=== PATIENT | female | born 1960 | race Caucasian/White ===

== ENCOUNTER 2016-02-12 08:24 | Observation (INO) | payer OTHER ==
--- NOTE | 2016-02-12 08:51 | ERNOTE ---
Abdominal HPI - Narrative Date of Service: 02/12/16 - General Chief Complaint: Abdominal Pain Time Seen by Provider: 02/12/16 08:44 Source: patient, family Exam Limitations: no limitations - Immun/Allergies/Home Medications Immunizatons: IMMUNIZATION HX Immunizations Up to Date Yes History of Influenza Vaccine Yes Allergies/Adverse Reactions: Allergies sulfamethoxazole [From Bactrim] Allergy (Verified 02/12/16 08:37) trimethoprim [From Bactrim] Allergy (Verified 02/12/16 08:37) hydromorphone HCl [From Dilaudid] Adverse Reaction (Intermediate, Verified 02/11 08:37) Nausea Home Medications: HOME MEDICATIONS Omeprazole [Prilosec] 20 mg PO DAILY 06/03/12 [Last Taken 07/11/13] Calcium Carb & Citrate/Vit D3 [Calcium + D3 ER Tablet] 1 each PO DAILY 01/01/13 [Last Taken 07/11/13] Multivit-Min/FA/Lycopene/Lut [Centrum Silver Tablet] 1 each PO DAILY 01/01/13 [ Last Taken 07/11/13] Acetaminophen [Tylenol] 650 mg PO QID PRN #0 tablet 07/16/13 [Last Taken Unknown ] - History of Present Illness Narrative: 4 days ago began to have RLQ abdominal pain and diarrhea. This has persisted and worsened. She also has a sore throat. 2 days ago, she was seen in the walkin clinic and given cleocin for strep throat and sinusitis. Nauseated. Only wanted Ibuprofen for pain in the ER. Turns out to have an elevated lipase and amylase. Review of Systems - Review of Systems Constitutional: Present: diaphoresis, weakness, malaise EYE: Present: no symptoms reported ENT: Present: sore throat Respiratory: Present: no symptoms reported Cardiology: Present: no symptoms reported Gastrointestinal/Abdominal: Present: See HPI Genitourinary: Present: no symptoms reported Musculoskeletal: Present: no symptoms reported Skin: Present: no symptoms reported Neurological: Present: no symptoms reported Endocrine: Present: no symptoms reported Hematologic/Lymphatic: Present: no symptoms reported Psych: Present: no symptoms reported All Other Systems: All systems neg except as marked - Patient's Past Medical History Patient History - Medical: No pertinent hx Patient History - Cardiac/Respiratory: No pertinent hx Patient History - Cancer: No Hx of Cancer Patient History - Surgical Procedures: , Tubal Ligation, Other - eye surgery, uterine ablation - Social History Living Situations: home Smoking Status: Never smoker Alcohol Use: none Drug Use: none Physical Exam - Physical Exam General Appearance: Present: wd/wn, alert, no apparent distress Eye Exam: Normal inspection: bilateral, PERRL: bilateral, EOMI: right - weak eye muscle Ears, Nose, Throat: Present: normal ENT inspection, hearing grossly normal Neck: Present: normal inspection, nontender Respiratory: Present: no respiratory distress, normal breath sounds Cardiovascular/Chest: Present: regular rate, rhythm, no murmur Gastrointestinal/Abdominal: Present: normal bowel sounds, nondistended, soft, no organomegaly, McBurney sign Back Exam: Present: normal inspection, normal range of motion, no CVA tenderness , no vertebral tenderness Extremity Exam: Present: normal inspection, no edema Neurological Exam: Present: alert, oriented, normal mood/affect Skin Exam: Present: normal color, warm/dry ED Progress - Results and Orders Patient's Lab Results:: I have reviewed the patient's lab results. - Vital Signs Patient's Vital Signs:: I have reviewed the patient's vital signs. Vital Signs: Vital Signs 02/12/16 08:34 Temperature 35.9 C L Pulse Rate 80 Respiratory 12 Rate Blood Pressure 144/75 O2 Sat by Pulse 98 Oximetry - CT/Ultrasound CT/Ultrasound Narrative: I reviewed the CT scan report which is non acute. - Progress/Reassessment Chief Complaint: Abdominal Pain Progress Note-Subjective: 02/12/16 14:27 I reviewed the abdominal CT scan report, which is non acute. 02/12/16 14:28 I spoke with the patient who agreed to be admitted for pancreatitis. I spoke with Dr. Jones who agreed to accept her as an observation medical surgical floor admission. Departure - Departure Clinical Impression: Pancreatitis Qualifiers: Chronicity: acute Pancreatitis type: unspecified pancreatitis type Acute pancreatitis complication: unspecified Qualified Code(s): K85.90 - Acute pancreatitis without necrosis or infection, unspecified Disposition: [facility] Condition: Good
[2016-02-12] MEDS ORDERED: IBUPROFEN 400 MG TABLET PO ONE (08:52)
[2016-02-12] MEDS ORDERED: NORMAL SALINE 1,000 ML IV PRN (08:53)
[2016-02-12 09:01] LABS: Hematocrit 43.3 % (37.0-47.0); Hemoglobin 14.3 gm/dL (12.5-16.0); Mean Cell Volume 85.9 fl (78-100); Mean Corpuscular Hemoglobin 28.4 pg (27-31); Mean Platelet Volume 9.5 fl (6.0-9.5); Neutrophil # 5.2 K/mm3 (1.3-6.0); Neutrophil % 51.2 % (42-75.0); Platelet Count 271 K/mm3 (150-450); Red Blood Count 5.04 M/mm3 (4.2-5.4); Red Cell Distribution Width 12.7 % (11.5-14.0); White Blood Count 10.1 K/mm3 (4.0-10.5)
[2016-02-12 09:14] LABS: Albumin * 3.8 gm/dl (3.4-5.0); Anion Gap 13.9 mmol/L (6.8-13.8); BUN/Creatinine Ratio 9.2 (9.0-21.6); Bilirubin, Total 0.3 mg/dL (0.0-1.1); Ca. Corrected For Albumin 8.8 mg/dL (8.4-10.2); Carbon Dioxide 26.9 mmol/L (24-32.6); Potassium 3.8 mmol/L (3.4-4.6); Total Protein 7.9 gm/dL (6.2-8.2)
[2016-02-12] MEDS ORDERED: DIATRIZOATE MEGLU/DIATRIZO SOD 30 ML BTL PO ONE (09:14)
[2016-02-12] MEDS ORDERED: IBUPROFEN 400 MG TABLET ONE (09:15)
[2016-02-12] MEDS ORDERED: DIATRIZOATE MEGLU/DIATRIZO SOD 30 ML BTL ONE (09:16)
[2016-02-12 10:30] LABS: Urine Appearance Clear; Urine Bacteria None Seen; Urine Bilirubin Negative (NEGATIVE); Urine Blood 10 /ul (NEGATIVE); Urine Color Yellow; Urine Ketone Negative (NEGATIVE); Urine Nitrite Negative (NEGATIVE); Urine Protein Negative (NEGATIVE); Urine RBC 0-5 /hpf (0-5); Urine Urobilinogen Normal (NORMAL); Urine WBC None Seen /hpf (0-5)
[2016-02-12] MEDS ORDERED: IBUPROFEN 800 MG TABLET PO PRN (14:32)
[2016-02-12] MEDS ORDERED: ONDANSETRON HCL/PF 2 MG/ML VIAL IV PRN (14:36)
[2016-02-12] MEDS: KETOROLAC TROMETHAMINE 30 MG/ML VIAL IV PRN ×2 (14:57→23:01)
[2016-02-12] MEDS: POTASSIUM CHLORIDE 20 MEQ in DEXTROSE 5%-NORMAL SALINE 990 ML IV SCH (15:14)
[2016-02-12] MEDS: PANTOPRAZOLE SODIUM 40 MG in NORMAL SALINE 100 ML IV SCH (15:14)
--- NOTE | 2016-02-12 20:02 | HP ---
Chief Complaint - Chief Complaint Date of Service: 02/12/16 Time of Service: 19:56 Chief Complaint: Abdominal Pain History of Present Illness: 4 days ago this 55 y/o woman began to have RLQ abdominal pain and diarrhea. This has persisted and worsened. She also has a sore throat. 2 days ago, she was seen in the [facility] walkin clinic and given cleocin for strep throat and sinusitis. She is nauseated. Only wanted Ibuprofen for pain today in the ER. Turns out to have an elevated lipase and amylase on further ER evaluation. - Patient's Past Medical History Patient History - Medical: No pertinent hx Patient History - Cardiac/Respiratory: No pertinent hx Patient History - Cancer: No Hx of Cancer Patient History - Surgical Procedures: , Tubal Ligation, Other - Family History Mother Family History - Medical: Family History - Cardiac/Respiratory: COPD, Myocardial Infarction Father Family History - Medical: Arthritis, Renal Failure Family History - Cardiac/Respiratory: Hypertension, Hyperlipidemia - Social History Living Situations: spouse Smoking Status: Never smoker Have you smoked in the past 12 months: No Do you dip or chew tobacco: No Patient requests Smoking Cessation Consult: No Initiate information on Smoking Cessation: No Alcohol Use: rarely Drug Use: none Review Of Systems (GEN) - Review of Systems Generalized/Overall Review: Present: Weakness, Malaise EENTM: Present: Throat Pain Respiratory: Present: No Symptoms Reported Cardiac: Present: No Symptoms Reported Abdominal: Present: Nausea, Abdominal Pain, Diarrhea Genitourinary: Present: No Symptoms Reported Musculoskeletal: Present: No Symptoms Reported Neurological: Present: No Symptoms Reported Skin: Present: No Symptoms Reported Endocrine: Present: No Symptoms Reported Misc: All systems neg except as marked Allergies/Adverse Reactions: Allergies Allergy/AdvReac Type Severity Reaction Status Date / Time sulfamethoxazole Allergy Verified 02/12/16 08:37 [From Bactrim] trimethoprim [From Bactrim] Allergy Verified 02/12/16 08:37 hydromorphone HCl AdvReac Intermediate Nausea Verified 02/12/16 08:37 [From Dilaudid] Home Medications: HOME MEDICATIONS Omeprazole [Prilosec] 20 mg PO DAILY 06/03/12 [Last Taken 07/11/13] Calcium Carb & Citrate/Vit D3 [Calcium + D3 ER Tablet] 1 each PO DAILY 01/01/13 [Last Taken 07/11/13] Multivit-Min/FA/Lycopene/Lut [Centrum Silver Tablet] 1 each PO DAILY 01/01/13 [ Last Taken 07/11/13] Acetaminophen [Tylenol] 650 mg PO QID PRN #0 tablet 07/16/13 [Last Taken Unknown ] Clindamycin HCl [Cleocin HCl] 300 mg PO TID 02/12/16 [Last Taken 02/11/16 22:00] Exam - Exam Vital Signs: Vital Signs - Last Taken Selected Entries 02/12/16 19:35 Temperature 36.9 C Temperature Oral Source Pulse Rate 72 Respiratory 20 Rate Blood Pressure 145/66 Blood Pressure Supine Position O2 Sat by Pulse 99 Oximetry Oxygen Delivery Room Air Method Constitutional: Present: Alert, Oriented x3, Cooperative, Well developed, Mild distress, Overweight ENT Exam: Present: normal ENT inspection, hearing grossly normal Eye Exam: bilateral eye: normal inspection, PERRL, right eye: EOMI - exotropia right eye Neck: Present: normal inspection Back Exam: Present: normal inspection Respiratory: Present: lungs clear, no respiratory distress Cardiovascular/Chest: Present: regular rate, rhythm, no murmur Abdomen: Present: Normal bowel sounds, soft, nondistended, tender - RLQ and epigastrium Extremity: Present: normal inspection, no pedal edema Skin Exam: Present: normal color, warm/dry, no cyanosis Neurologic: Present: alert, oriented x 3 Appearance: Present: appropriate appearance, appropriate insight, neat, no memory impairment Eye contact: Present: cooperative, good eye contact, normal speech Thoughts: Present: normal thought pattern Diagnostic Studies: Laboratory Results WBC 10.1 K/mm3 (4.0-10.5) 02/12/16 08:53 RBC 5.04 M/mm3 (4.2-5.4) 02/12/16 08:53 Hgb 14.3 gm/dL (12.5-16.0) 02/12/16 08:53 Hct 43.3 % (37.0-47.0) 02/12/16 08:53 MCV 85.9 fl (78-100) 02/12/16 08:53 MCH 28.4 pg (27-31) 02/12/16 08:53 MCHC 33.0 g/dl (32-36) 02/12/16 08:53 RDW 12.7 % (11.5-14.0) 02/12/16 08:53 Plt Count 271 K/mm3 (150-450) 02/12/16 08:53 MPV 9.5 fl (6.0-9.5) 02/12/16 08:53 Immature Gran % (Auto) 0.30 % (0.001-0.429) 02/12/16 08:53 Immature Gran # (Auto) 0.03 K/mm3 (0.000-0.0310) 02/12/16 08:53 Neutrophils % 51.2 % (42-75.0) 02/12/16 08:53 Lymphocytes % 36.5 % (20-51) 02/12/16 08:53 Monocytes % 4.4 % (0.0-9) 02/12/16 08:53 Eosinophils % 6.5 % (0.0-3.0) H 02/12/16 08:53 Basophils % 1.1 % (0.0-1.0) H 02/12/16 08:53 Nucleated RBC % 0.0 k/mm3 (0-1) 02/12/16 08:53 Neutrophils # 5.2 K/mm3 (1.3-6.0) 02/12/16 08:53 Lymphocytes # 3.7 k/mm3 (1.5-3.5) H 02/12/16 08:53 Monocytes # 0.4 k/mm3 (0.0-1.0) 02/12/16 08:53 Eosinophils # 0.7 k/mm3 (0.0-0.7) 02/12/16 08:53 Absolute Basophils 0.1 k/mm3 (0.0-0.1) 02/12/16 08:53 Sodium 139 mmol/L (132-142) 02/12/16 08:53 Plasma Sodium 139 mmol/L (130-142) 02/12/16 08:53 Potassium 3.8 mmol/L (3.4-4.6) 02/12/16 08:53 Chloride 102 mmol/L (97-106) 02/12/16 08:53 Carbon Dioxide 26.9 mmol/L (24-32.6) 02/12/16 08:53 Anion Gap 13.9 mmol/L (6.8-13.8) H 02/12/16 08:53 BUN 9 mg/dL (3-23) 02/12/16 08:53 Creatinine 0.98 mg/dL (0.4-1.4) 02/12/16 08:53 Est GFR (Non-Af Amer) 63 mL/min (60-130) 02/12/16 08:53 BUN/Creatinine Ratio 9.2 (9.0-21.6) 02/12/16 08:53 Random Glucose 111 mg/dL (70-110) H 02/12/16 08:53 Calcium 9.0 mg/dL (7.9-10.9) 02/12/16 08:53 Calcium Adj for Albumin 8.8 mg/dL (8.4-10.2) 02/12/16 08:53 Total Bilirubin 0.3 mg/dL (0.0-1.1) 02/12/16 08:53 AST 14 U/L (0-48) 02/12/16 08:53 ALT 28 U/L (19-67) 02/12/16 08:53 Alkaline Phosphatase 101 U/L (50-170) 02/12/16 08:53 Total Protein 7.9 gm/dL (6.2-8.2) 02/12/16 08:53 Albumin 3.8 gm/dl (3.4-5.0) 02/12/16 08:53 Amylase 155 U/L (25-115) H 02/12/16 08:53 Lipase 664 U/L (73-393) H 02/12/16 08:53 Serum HCG, Qual Negative (NEGATIVE) 02/12/16 08:53 Urine Color Yellow 02/12/16 10:10 Urine Appearance Clear 02/12/16 10:10 Urine pH 6.0 pH (5.0-7.0) 02/12/16 10:10 Ur Specific [place] 1.010 SP.GR. (1.005-1.010) 02/12/16 10:10 Urine Protein Negative mg/dL (NEGATIVE) 02/12/16 10:10 Urine Glucose (UA) Negative mg/dL (NEGATIVE) 02/12/16 10:10 Urine Ketones Negative mg/dL (NEGATIVE) 02/12/16 10:10 Urine Blood 10 /ul (NEGATIVE) H 02/12/16 10:10 Urine Nitrate Negative (NEGATIVE) 02/12/16 10:10 Urine Bilirubin Negative mg/dl (NEGATIVE) 02/12/16 10:10 Urine Urobilinogen Normal EU/dl (NORMAL) 02/12/16 10:10 Ur Leukocyte Esterase Negative /ul (NEGATIVE) 02/12/16 10:10 Urine RBC 0-5 /hpf (0-5) 02/12/16 10:10 Urine WBC None seen /hpf (0-5) 02/12/16 10:10 Ur Epithelial Cells 0-5 /hpf (0-5) 02/12/16 10:10 Urine Bacteria None seen (NONE) 02/12/16 10:10 Urine Culture Comments No culture indicated 02/12/16 10:10 Assessment/Plan - Narrative Narrative: Ultrasound g.b. IV antibiotics. NPO. IV fluids. Symptom control. Estimate stay of 2-3 days. - Assessment/Plan (1) Strep pharyngitis Problem: Acute (2) Pancreatitis Problem: Acute Qualifiers: Chronicity: acute Pancreatitis type: unspecified pancreatitis type Acute pancreatitis complication: unspecified Qualified Code(s): K85.90 - Acute pancreatitis without necrosis or infection, unspecified
[2016-02-12] MEDS ORDERED: ENOXAPARIN SODIUM 40 MG/0.4 ML SYRG SC SCH (21:00)
[2016-02-12] MEDS: CLINDAMYCIN HCL 150 MG CAPSULE PO SCH (21:36)
[2016-02-13] MEDS: POTASSIUM CHLORIDE 20 MEQ in DEXTROSE 5%-NORMAL SALINE 990 ML IV SCH ×2 (00:31→08:52)
[2016-02-13] MEDS: PANTOPRAZOLE SODIUM 40 MG in NORMAL SALINE 100 ML IV SCH ×2 (03:06→14:00)
[2016-02-13] MEDS: CLINDAMYCIN HCL 150 MG CAPSULE PO SCH ×2 (05:14→13:50)
[2016-02-13 05:16] LABS: Hematocrit 37.1 % (37.0-47.0); Mean Cell Volume 86.5 fl (78-100); Mean Corpuscular Hgb Conc 32.3 g/dl (32-36); Mean Platelet Volume 9.7 fl (6.0-9.5); Neutrophil # 4.6 K/mm3 (1.3-6.0); Neutrophil % 51.9 % (42-75.0); Platelet Count 226 K/mm3 (150-450); Red Blood Count 4.29 M/mm3 (4.2-5.4); Red Cell Distribution Width 12.8 % (11.5-14.0); White Blood Count 8.8 K/mm3 (4.0-10.5)
[2016-02-13 05:41] LABS: Albumin * 3.1 gm/dl (3.4-5.0); Anion Gap 11.7 mmol/L (6.8-13.8); BUN/Creatinine Ratio 6.2 (9.0-21.6); Bilirubin, Total 0.4 mg/dL (0.0-1.1); Ca. Corrected For Albumin 9.1 mg/dL (8.4-10.2); Calcium * 8.7 mg/dL (7.9-10.9); Carbon Dioxide 25.5 mmol/L (24-32.6); Potassium 4.2 mmol/L (3.4-4.6); Total Protein 6.3 gm/dL (6.2-8.2)
--- NOTE | 2016-02-13 10:27 | PN ---
Subjective - Date and Time Seen Date: 02/13/16 Time: 10:20 Subjective Narrative: patient seen today AOX3 no acute distress with at the bedside, pt state dher pain was 3/10 no need for pain medications. she is eager to be DC home and want to eat. She denies fever, chills, nausea, or vomiting. Objective - Review of Systems Generalized/Overall Review: Reports: No Symptoms Reported EENTM: Reports: No Symptoms Reported Respiratory: Reports: No Symptoms Reported Cardiac: Reports: No Symptoms Reported Abdominal: Reports: Abdominal Pain - mild pain localized right lower quadrant Genitourinary Symptoms: Reports: No Symptoms Reported Musculoskeletal Complaints: Reports: No Symptoms Reported Neurological: Reports: No Symptoms Reported Skin: Reports: No Symptoms Reported - Vitals Vitals: Last Vital Signs Temp 36.6 C 02/13/16 07:41 Pulse 73 02/13/16 07:41 Resp 16 02/13/16 07:41 BP 116/54 02/13/16 07:41 Pulse Ox 99 02/13/16 07:41 - Abnormal Lab Findings Abnormal Lab Findings: Abnormal Lab Results 02/13/16 02/13/16 Range/Units 04:50 04:50 Hgb 12.0 L (12.5-16.0) gm/dL MPV 9.7 H (6.0-9.5) fl Eosinophils % 6.7 H (0.0-3.0) % Sodium 143 H (132-142) mmol/L Plasma Sodium 143 H (130-142) mmol/L Chloride 110 H (97-106) mmol/L BUN/Creatinine Ratio 6.2 L (9.0-21.6) Albumin 3.1 L (3.4-5.0) gm/dl - Exam Constitutional: Present: Alert, Oriented x3, Cooperative, Well developed, No distress ENT Exam: Present: normal ENT inspection Neck: Present: full range of motion Breasts: Present: Exam deferred Respiratory: Present: chest non-tender, lungs clear, normal breath sounds, no respiratory distress Cardiovascular/Chest: Present: normal peripheral pulses, regular rate, rhythm, no chest tenderness, no edema Abdomen: Present: Normal bowel sounds, soft, nontender, nondistended, no rebound tenderness /Rectal: Present: Exam deferred Extremity: Present: normal range of motion, non-tender, normal inspection, no pedal edema, no calf tenderness Skin Exam: Present: normal color, warm/dry, no cyanosis Lymphatic: Present: no adenopathy Neurologic: Present: oriented x 3 Appearance: Present: appropriate appearance Eye contact: Present: cooperative Thoughts: Present: normal thought pattern Assessment/Plan Plan Narrative: Pancreatitis on adm Lipase 664----->183 gradually improved on adm Amylase 155----->86 improved CLD and advanced as tolerated pt report pain improved and 3/10 on scale lasttime she had pain medication was overnight. Anticipating DC later today when tolerating diet well and pain control. Strep pharyngitis Continue with cleocin upon discharge Hypernatremia DC IVF when pt eating - Problems/Diagnosis (1) Strep pharyngitis Problem: Acute (2) Pancreatitis Problem: Acute Qualifiers: Chronicity: acute Pancreatitis type: unspecified pancreatitis type Acute pancreatitis complication: unspecified Qualified Code(s): K85.90 - Acute pancreatitis without necrosis or infection, unspecified
[2016-02-13 14:16] LABS: Chol/HDL Risk Ratio 5.4 mg/dL (3.3-4.4)
--- NOTE | 2016-02-13 14:38 | DS ---
(1) Strep pharyngitis Problem: Acute (2) Pancreatitis Problem: Acute Qualifiers: Chronicity: acute Pancreatitis type: unspecified pancreatitis type Acute pancreatitis complication: unspecified Qualified Code(s): K85.90 - Acute pancreatitis without necrosis or infection, unspecified (3) High triglycerides Problem: Chronic Description of Stay: Date of admission: 02/12/2016 Date of discharge: 02/13/2016 Hospital course 55 y/o woman began to have RLQ abdominal pain and diarrhea x 4 days. This has persisted and worsened. She also has a sore throat. 2 days ago, she was seen in the [facility] walkin clinic and given cleocin for strep throat and sinusitis. She is nauseated. Only wanted Ibuprofen for pain today in the ER. Turns out to have an elevated lipase and amylase on further ER evaluation. During this adm she remain medically stable, tolerated IVF resuscitation, meals, pain well and controlled. pt stated she had elevated triglyceride less than 6 months ago that was not treated, nor did she made any changes to her diet. o this adm triglyceride >300, niacin initiated upon discharge, plans to follow up with PCP in 1 week and continue with home dose of antibiotics. Diagnostic: 02/12/2016 CT Abdomen: no definite acute intra-abdominal or pelvic findings. 02/13/2016: single organ ultra-sound: negative for gallstone or acute cholecystitis, no evidence for abnormal extra-hepatic ductal dilation. Procedures Performed: none Results and Findings: Laboratory Tests 02/12/16 02/12/16 02/13/16 08:53 08:53 04:50 WBC 10.1 8.8 RBC 5.04 Hgb 14.3 12.0 L Hct 43.3 37.1 Sodium 139 143 Potassium 3.8 4.2 BUN 9 6 Creatinine 0.98 0.97 Triglycerides 314 H Cholesterol 214 H LDL Cholesterol 112 VLDL Cholesterol 63 H HDL Cholesterol 39 L Cholesterol/HDL Ratio 5.4 H Amylase 155 H 86 Lipase 664 H 183 Stl C.difficile Tox A&B negative Discharge Disposition: Home self care Disposition: Home self-care Condition: Stable Discharge Activity: Activity as tolerated Discharge Diet: Low fat/chol Referrals: Aly Peña MD [Primary Care Provider] - Additional Patient Instructions (free text): Follow up with Dr. Peña in 1 week Low fat/ low cholesterol diet Prescriptions (Any new or edited meds): Niacin 250 mg PO HS #30 tab Complete Home Medications List: Complete Home Medication List: Omeprazole [Prilosec] 20 mg PO DAILY 06/03/12 Calcium Carb & Citrate/Vit D3 [Calcium + D3 ER Tablet] 1 each PO DAILY 01/01/13 Multivit-Min/FA/Lycopene/Lut [Centrum Silver Tablet] 1 each PO DAILY 01/01/13 Acetaminophen [Tylenol] 650 mg PO QID PRN #0 tablet 07/16/13 Clindamycin HCl [Cleocin HCl] 300 mg PO TID 02/12/16 Niacin 250 mg PO HS #30 tab 02/13/16
[2016-02-13 14:56] VITALS: BP 118/56
== END 2016-02-13 18:13 | disposition home or self-care (01) ==
LOC: ER 08:24 → MS 14:07
PROVIDERS: ADMIT Internal Medicine; ATTEND Allergy & Immunology
DX: K85.90 Acute pancreatitis without necrosis or infection, unspecified (principal); J02.0 Streptococcal pharyngitis; E78.1 Pure hyperglyceridemia
CPT/HCPCS: 36415; 74177; 76705; 80053; 80061; 81001; 82150; 83690; 84703; 85025; 87493; 96372; 96374; 99283; G0378

== ENCOUNTER 2016-03-26 11:36 | Emergency (ER) | payer OTHER ==
[2016-03-26 12:04] LABS: Hematocrit 41.4 % (37.0-47.0); Hemoglobin 13.5 gm/dL (12.5-16.0); Mean Cell Volume 87.5 fl (78-100); Mean Corpuscular Hemoglobin 28.5 pg (27-31); Mean Corpuscular Hgb Conc 32.6 g/dl (32-36); Mean Platelet Volume 9.9 fl (6.0-9.5); Neutrophil # 6.1 K/mm3 (1.3-6.0); Neutrophil % 56.9 % (42-75.0); Platelet Count 242 K/mm3 (150-450); Red Blood Count 4.73 M/mm3 (4.2-5.4); Red Cell Distribution Width 12.9 % (11.5-14.0); White Blood Count 10.6 K/mm3 (4.0-10.5)
[2016-03-26 12:23] LABS: Albumin * 3.9 gm/dl (3.4-5.0); Anion Gap 15.8 mmol/L (6.8-13.8); BUN/Creatinine Ratio 11.1 (9.0-21.6); Bilirubin, Total 0.4 mg/dL (0.0-1.1); Ca. Corrected For Albumin 9.1 mg/dL (8.4-10.2); Calcium * 9.3 mg/dL (7.9-10.9); Carbon Dioxide 25.4 mmol/L (24-32.6); Potassium 4.2 mmol/L (3.4-4.6); Total Protein 7.8 gm/dL (6.2-8.2)
--- NOTE | 2016-03-26 12:57 | ERNOTE ---
Abdominal HPI - Narrative Date of Service: 03/26/16 - General Chief Complaint: Abdominal Pain Time Seen by Provider: 03/26/16 12:44 Source: patient Exam Limitations: no limitations - Immun/Allergies/Home Medications Immunizatons: IMMUNIZATION HX Immunizations Up to Date Yes History of Influenza Vaccine Yes Allergies/Adverse Reactions: Allergies sulfamethoxazole [From Bactrim] Allergy (Verified 03/26/16 11:48) trimethoprim [From Bactrim] Allergy (Verified 03/26/16 11:48) hydromorphone HCl [From Dilaudid] Adverse Reaction (Intermediate, Verified 03/26 11:48) Nausea Home Medications: HOME MEDICATIONS Omeprazole [Prilosec] 20 mg PO DAILY 06/03/12 [Last Taken 07/11/13] Calcium Carb & Citrate/Vit D3 [Calcium + D3 ER Tablet] 1 each PO DAILY 01/01/13 [Last Taken 07/11/13] Multivit-Min/FA/Lycopene/Lut [Centrum Silver Tablet] 1 each PO DAILY 01/01/13 [ Last Taken 07/11/13] Acetaminophen [Tylenol] 650 mg PO QID PRN #0 tablet 07/16/13 [Last Taken Unknown ] - History of Present Illness Narrative: Pt. comes in with c/o RUQ pain that is intermittent for the past three days and is worse today. Pt. states that pain began about 1/2 hour after she ate and has continued without relief. Pt. states that pain Radiates to her R flank and is worse with standing. pt. denies any prehospital treatment. Review of Systems - Review of Systems Constitutional: Present: no symptoms reported. Absent: recent illness, fever, chills, weakness, fatigue EYE: Present: no symptoms reported ENT: Present: no symptoms reported. Absent: nose pain, nose congestion, nasal drainage Respiratory: Present: no symptoms reported. Absent: shortness of breath, cough , wheezing Cardiology: Present: no symptoms reported. Absent: chest pain, palpitations, edema Gastrointestinal/Abdominal: Present: diarrhea, abdominal pain - RUQ, eating less. Absent: nausea, vomiting Genitourinary: Present: pain - R flank. Absent: dysuria, decreased urinary output Musculoskeletal: Present: no symptoms reported. Absent: neck pain, joint pain Skin: Present: no symptoms reported. Absent: rash, change in color Neurological: Present: no symptoms reported. Absent: headache, dizziness/light- headedness, numbness, tingling All Other Systems: All systems neg except as marked - Patient's Past Medical History Patient History - Medical: No pertinent hx Patient History - Cardiac/Respiratory: No pertinent hx Patient History - Cancer: No Hx of Cancer Patient History - Surgical Procedures: , Tubal Ligation, Other Patient History - Other: None - Family History Mother Family History - Medical: Family History - Cardiac/Respiratory: COPD, Myocardial Infarction Father Family History - Medical: Arthritis, Renal Failure Family History - Cardiac/Respiratory: Hypertension, Hyperlipidemia - Social History Living Situations: home Psych History: No pertinent hx Alcohol Use: rarely Drug Use: none - Immunizations Immunizations Up to Date: Yes History of Influenza Vaccine: Yes Physical Exam - Physical Exam General Appearance: Present: wd/wn, alert, no apparent distress Eye Exam: Normal inspection: bilateral, PERRL: bilateral, EOMI: bilateral Ears, Nose, Throat: Present: normal ENT inspection, hearing grossly normal, normal pharynx Neck: Present: normal inspection, nontender. Absent: lymphadenopathy (R), lymphadenopathy (L) Respiratory: Present: no respiratory distress, normal breath sounds, no accessory muscle use, chest nontender, lungs clear. Absent: rales, rhonchi, stridor, wheezing Cardiovascular/Chest: Present: regular rate, rhythm, no murmur, normal peripheral pulses Gastrointestinal/Abdominal: Present: normal bowel sounds, nondistended, soft, no organomegaly, tenderness - RUQ. 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 Absent: pallor, skin rash ED Progress - Date and Time Seen: Date and Time: 03/26/16 14:59 Feel that pt. is having gallbladder attack discussed with Dr Aguirre and we will have pt. get HYDA scan which is unavailable until tomorrow, so Dr Aguirre to evaluate for if pt. needs to be inpatient for this or can go home outpatient and return tomorrow. 03/26/16 16:19 Dr Aguirre feels that this may be a more chronic problema dn less acute so will have pt. follow up with Dr Peña and start on Fiber daily. - Results and Orders Patient's Lab Results:: I have reviewed the patient's lab results. Results and Orders: hematuria and Calcium oxalate. - Vital Signs Patient's Vital Signs:: I have reviewed the patient's vital signs. Vital Signs: Vital Signs 03/26/16 11:45 Temperature 35.2 C L Pulse Rate 72 Respiratory 12 Rate Blood Pressure 130/76 O2 Sat by Pulse 100 Oximetry - X-Ray X-Ray #1 X-Ray: abdomen Interpretation: Reviewed by me X-ray Comments: no free air, no air- fluid levels, no constipation. - CT/Ultrasound CT/Ultrasound Narrative: CT scan notable for gallbladder sludge vs stones and mesentaric panniculitis and colitis - Progress/Reassessment Chief Complaint: Abdominal Pain Departure - Departure Clinical Impression: Gallbladder attack, Colitis Disposition: Home self-care Condition: Good Instructions: Biliary Colic, Low-Fat Diet for Pancreatitis or Gallbladder Conditions Additional Instructions: Please follow up with your primary provider in 2-3 days. Eat a low fat diet and take fiber daily.
--- OUTSIDE RECORDS SUMMARY | 2016-03-26 13:10 | XMS REPORT | Continuity of Care Document ---
:1960 Author Organization [facility] ([facility]) Address [address] [place] [address] Phone [phone] Care Team Providers Name Role Phone Aly Peña Primary Care Provider [phone] Source Comments This disclosure is being made pursuant to the Care Everywhere program, applicable federal and state laws, and may not contain all informaitonavailable regarding this patient.[facility] ([facility]) Active Allergies and Adverse Reactions Allergen Noted Date Severity Reactions Comments Sulfamethoprim Ds 12/20/2014 Pruritus,Rash Current Medications Prescription Sig. Disp. 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, had surgery OU at age 5 Last Assessment & Plan: Discussed R&R OD possible adjustable suture She will think about it and call Social History Tobacco Use Types Packs/Day Years Used Date Never Smoker Smokeless Tobacco: Never Used Alcohol Use Drinks/Week oz/Week Comments No Last Filed Vital Signs Vital Sign Reading Time Taken Blood Pressure 145/67 07/21/2015 7:05 PM CDT Pulse 85 07/21/2015 7:05 PM CDT Temperature 36.4 C (97.5 F) 07/21/2015 7:05 PM CDT Respiratory Rate 15 07/21/2015 7:05 PM CDT Height 1.575 m (5' 2") 07/21/2015 7:05 PM CDT Weight 71.215 kg (157 lb) 07/21/2015 7:05 PM CDT Body Mass Index 28.71 07/21/2015 7:05 PM CDT Oxygen Saturation 99% 07/21/2015 7:05 PM CDT Plan of Care Health Maintenance Due Date Last Done Comments HCV Screening 1960 Hepatitis B Vaccine (1 of 3 - Primary Series) 1960 Tdap Vaccine 1973 Lipid Disorder Screening 1980 MMR Vaccine 1980 Td Vaccine 1980 Cervical Cancer Screening 1992 Mammogram 2002 Colonoscopy 09/28/2012 Influenza Vaccine: Seasonal (#1) 09/12/2015 Results from Last 3 Months Not on file
[2016-03-26 13:17] LABS: Urine Bilirubin Negative (NEGATIVE); Urine Blood 25 /ul (NEGATIVE); Urine Ketone 5 mg/dL (NEGATIVE); Urine Nitrite Negative (NEGATIVE); Urine Protein Negative (NEGATIVE); Urine Specific Gravity >=1.030 SP.GR. (1.005-1.010); Urine Urobilinogen Normal (NORMAL); Urine pH 5.5 pH (5.0-7.0)
[2016-03-26 13:18] LABS: Urine Appearance Clear; Urine Bacteria TRACE; Urine Color Yellow; Urine RBC 0-5 /hpf (0-5); Urine WBC 0-5 /hpf (0-5)
[2016-03-26 15:08] VITALS: BP 144/86
== END 2016-03-26 16:32 | disposition home or self-care (01) ==
LOC: ER 11:36
DX: K82.9 Disease of gallbladder, unspecified (principal); K52.9 Noninfective gastroenteritis and colitis, unspecified